=== PATIENT | female | born 1960 | race Caucasian/White ===

== ENCOUNTER 2024-10-04 07:24 | Outpatient (CLI) | payer OTHER | END 2024-10-04 07:30 | disposition home or self-care (01) | LOC: SONOGRAMA 07:24 | PROVIDERS: ATTEND Urology | DX: C61 Malignant neoplasm of prostate (principal); N40.1 Benign prostatic hyperplasia with lower urinary tract symptoms; N42.31 Prostatic intraepithelial neoplasia; R97.20 Elevated prostate specific antigen [PSA] ==

== ENCOUNTER 2025-02-07 07:18 | Outpatient (CLI) | payer OTHER | END 2025-02-07 07:19 | disposition home or self-care (01) | LOC: NUCLEAR 07:18 | PROVIDERS: ATTEND Urology | DX: I20.9 Angina pectoris, unspecified (principal) ==